=== PATIENT | male | born 2000 | race African-American/Black ===

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

== ENCOUNTER 2021-08-12 08:56 | Emergency (ER) | payer BC, SELFPAY ==
[2021-08-12] VITALS (9 sets, daily range): BP systolic 128–155; BP diastolic 74–90; PULSE 74–87; RESP 12–18; TEMP 36.4–36.9; O2SAT 99–100; BMI 31.1
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
[2021-08-12 10:00] LABS: Absolute Lymphocyte Count 1.63 X10^3/uL (0.83-4.51); Absolute Neutrophil Count 8.8 X10^3/uL (2.0-7.7); Basophil# 0.04 X10^3/uL; Basophil% 0.4 % (0-1); Eosinophil# 0.05 X10^3/uL; Eosinophils% 0.4 % (0-5); Hematocrit 45.5 % (40-54); Hemoglobin 14.8 g/dL (13.0-16.5); Lymphocyte # 1.63 X10^3/ul (0.83-4.51); Lymphocyte % 14.6 % (19-41); Mean Corp Hgb Conc 32.5 g/dL (32-36); Mean Corpuscular Hgb 29.5 pg (27.0-32.0); Mean Corpuscular Volume 90.6 fL (80-94); Mean Platelet Vol. 10.3 fl (6.2-12.0); Monocyte% 5.4 % (0-10); NRBC Flagged by Analyzer 0 % (0-5); Neutrophil # 8.83 X10^3/uL (2.7-7.7); Neutrophil % 78.8 % (47-70); Platelet Count 216 K/mm3 (150-450); RBC Distribution Width CV 12.5 % (11.6-14.6); RBC Distribution Width SD 41.4 fl (35.1-43.9); Red Blood Count 5.02 M/mm3 (4.6-6.2); White Blood Count 11.2 K/mm3 (4.4-11.0)
[2021-08-12 10:13] LABS: Anion Gap 7 (5-15); BUN 12 mg/dL (7-18); BUN/Creat Ratio 11.7 RATIO (10-20); Calcium,Total 9.6 mg/dL (8.5-10.1); Chloride 110 mmol/L (98-107); Creatinine, Serum 1.03 mg/dL (0.70-1.30); EST Glomerular Filtration Rate 97 mL/min (>60); Est Glom Filt Rate - Afr Amer 117 mL/min (>60); Estimated Creatinine Clearance 124.52 ml/min; Glucose 113 mg/dL (74-106); Potassium 3.6 mmol/L (3.5-5.1); Sodium Level 141 mmol/L (136-145)
[2021-08-12 10:26] LABS: Alcohol, Blood (Medical)-Serum < 3.0 mg/dL
[2021-08-12 10:35] LABS: Amphetamine Urine VISTA NEGATIVE (<1000 ng/mL); Barbiturate Urine VISTA NEGATIVE (< 200 ng/mL); Benzodiazepine Urine VISTA NEGATIVE (< 200 ng/mL); Cocaine Urine VISTA NEGATIVE (< 300 ng/mL); Ecstacy Urine VISTA NEGATIVE (< 500 ng/mL); Methadone Urine VISTA NEGATIVE (< 300 ng/mL); PCP Urine VISTA NEGATIVE (< 25 ng/mL); THC Urine VISTA POSITIVE (< 50 ng/mL); Vista UDS pH Range 6
[2021-08-12] MEDS: Lidocaine 1% (20 ml mdv) 20 ML Vial INFILT (10:49)
--- NOTE | 2021-08-12 11:24 | ED.RN ---
PT INFORMED OF COVID POSITIVE RESULTS. PT STARTS SHOUTING, THIS IS FUCKING BULLSHIT, HOW CAN YOU SAY THAT THEY ARE POSITIVE? PT MOM AT BEDSIDE TRYING TO TALK PATIENT, STATING THAT HE IS HERE TO GET HELP. PT GETS UP OUT OF THE BED AND STARTS PACING, REPORTS, I AM GOING TO LEAVE UP OUT OF HERE, AND AIN'T NO ONE WHO CAN STOP ME. THIS IS BULLSHIT HOW CAN YOU KEEP ME IN THIS USP, AIN'T NOTHING IN HERE BUT A SINK AND A BED. THIS IS USP AND YOU CANNOT STOP ME FROM LEAVING. PT ANGRY AND MARCHING OUT OF THE DEPARTMENT. PT PHYSICALLY PUSHING MOM OUT OF THE WAY. MOM BEGGING PT TO STAY AND GET HELP. WHILE IN THE HALLWAY PT STATES, I HAVE BEEN MESSED UP FOR A LONG TIME MOM, AND NO ONE IS TRYING TO HELP ME. ALL THEY ARE GOING TO DO IS CHARGE ME MONEY FOR BEING HERE, I AM STITCHED UP AND READY TO LEAVE.PT PINK SLIPPED. LAW ENFORCEMENT AND HRO NOTIFIED. SECURITY FOLLOWING PT.
[2021-08-12] MEDS: Ziprasidone IM 20 MG/ML VIAL IM (11:40)
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
--- NOTE | 2021-08-12 11:57 | ED.RN ---
pt escorted back to room by pd. cassi crockett. pt reports he will be cooperative, informed of pink slip. pt educated on pink slip and what that means. social economist at bedside to evaluate pt.
[2021-08-12] MEDS: Ondansetron ODT 4 MG Tablet PO (13:09)
--- NOTE | 2021-08-12 15:09 | EKG12_ITS ---
Test Reason : SUICIDAL Blood Pressure : / mmHG Vent. Rate : 055 BPM Atrial Rate : 055 BPM P-R Int : 148 ms QRS Dur : 098 ms QT Int : 424 ms P-R-T Axes : 062 080 062 degrees QTc Int : 405 ms Sinus bradycardia Otherwise normal ECG Confirmed by JULIA RIOS, HAMLET ([id number]), general expeditor TYRELL WATTERS ([id number]) on 08/15/2021 12:59:54 PM Referred By: ANDRES Confirmed By:HAMLET DUMONT MD
--- NOTE | 2021-08-12 15:09 | CM.ED ---
Call to [facility] beds available, however, not in network with patient's insurance. Call to [facility], beds available and in network with patient's insurance. Referral to be faxed. REMINGTON Gutierrez, TRACK DRESSER
--- NOTE | 2021-08-12 17:04 | CM.ED ---
Call to [facility] to check on status of referral. Per intake, behind on referrals. Will review and get back to this worker when able. Naa Monge, INFORMATION TECHNOLOGY AUDITOR, REGULATORY COMPLIANCE ENGINEER
--- NOTE | 2021-08-12 17:04 | CM.ED ---
Call to [facility], no answer, left message for intake. Call to [facility]. Intake reports beds available. Referral faxed for review. Patient pending at [facility] and [facility]. REMINGTON Gutierrez, JAVA GRAILS DEVELOPER
--- NOTE | 2021-08-12 19:17 | CM.ED ---
SOCIAL WORK Patient accepted to [facility] by Dr. Weiss to [address]. Requesting [place] Slip be faxed. Intake to call this worker back with number for report. Call to [facility], ETA 20-30 minutes. Naa Monge MSW, DATA MANAGEMENT MANAGER
--- NOTE | 2021-08-12 19:55 | CM.ED ---
Call from [facility], report to be called to [phone]. Staff and patient updated. Naa Monge, MICROFICHE DUPLICATOR, PORCELAIN WAXER
== END 2021-08-12 20:07 ==
PROVIDERS: Emergency Provider Emergency Medicine
DX: R45.851 Suicidal ideations (principal); R45.1 Restlessness and agitation; S61.211A Laceration without foreign body of left index finger without damage to nail, initial encounter; S60.512A Abrasion of left hand, initial encounter; S60.511A Abrasion of right hand, initial encounter; X78.1XXA Intentional self-harm by knife, initial encounter; Y93.9 Activity, unspecified; Y92.9 Unspecified place or not applicable; F17.210 Nicotine dependence, cigarettes, uncomplicated
CPT/HCPCS: 12001; 80048; 80307; 82077; 85025; 87426; 87635; 93005; 96372; 99285; U0005; J2405; J3486; U0003

== ENCOUNTER 2022-10-06 08:25 | Emergency (ER) | payer OTHER, SELFPAY ==
[2022-10-06 08:26] VITALS: BP 130/73; PULSE 62; RESP 14; TEMP 36.5; O2SAT 100; BMI 27.4
--- NOTE | 2022-10-06 08:50 | EX.ED.DYSGE1 ---
HPI History of Present Illness Chief Complaint: Occup Expose Detail of Chief Complaint: Inhalation of chemical dust Informant: patient Onset/Context/Timing Onset: Today Narrative Narrative: Patient presents the emergency department with complaint of inhaling a chemical dust at work. Patient states that he was moving a bag of the chemical when it got on his suit and then he inhaled it from his suit. Patient complains of some burning to his throat and a foul taste in his mouth. He denies difficulty breathing. He denies lip or tongue swelling. Inhalation occurred approximately an hour and a half ago at 7:15 AM. Patient does not want to file this under Workmen's Comp. A safety data sheet was sent with the patient and the chemical is known as Proaid and contains the chemical [id number]. Prior similar symptoms: No PFSH PFSH Medical History Asthma Chest pain Chronic headaches Chronic neck and back pain Limb weakness Shoulder pain SOB (shortness of breath) Home Medications azithromycin 250 mg tablet See Rx Instructions PO .COMPLEX #6 tabs 05/26/22 [Rx Last Taken Unknown] escitalopram oxalate 10 mg tablet ea PO 05/26/22 [History Last Taken Unknown] Allergy/AdvReac Type Severity Reaction Status Date / Time No Known Allergies Allergy Verified 10/06/22 08:27 Family History (Updated 05/26/22 @ 09:19 by Arlet Roberts, RN) Other Suicide Surgical History History of ankle surgery Social History Smoking Status: Current some day smoker tobacco type: cigarettes ROS ROS ED Review of Systems ROS Unobtainable: other Constitutional Constitutional ED: Reports lethargy; Denies chills, fever(s), sweats or weight loss Eyes Eyes: Denies blurry vision, change in vision or diplopia ENT ENT ED: Reports other Details: Burning the throat and foul taste in mouth ; Denies rhinorrhea or sore throat Cardiovascular Cardiovascular: Denies chest pain, orthopnea or racing heartbeat Respiratory/Chest Respiratory/Chest: Denies cough, dyspnea, dyspnea on exertion, orthopnea or sputum Gastrointestinal Gastrointestinal: Denies abdominal pain, diarrhea, nausea or vomiting Genitourinary Genitourinary ED: Denies dysuria, hematuria or urinary frequency Musculoskeletal Musculoskeletal: Denies arthralgias, back pain, myalgias or neck pain Integumentary Denies abscess, Abrasions or rash Neurologic Neurologic: Denies headache(s) or weakness Psychiatric Psychiatric: Denies anxiety, depression or suicidal thoughts Endocrine Endocrinology: Denies polydipsia, polyphagia or polyuria Hematologic/Lymphatic Hematologic/Lymphatic: Denies easy bleeding, easy bruising or lymphadenopathy Allergic/Immunologic Allergic/Immunologic ED: Denies mouth swelling, tongue swelling or urticaria EXAM Physical Exam Const Vital Signs: 10/06/22 08:26 Temperature 97.7 F L Temperature Source Temporal Pulse Rate 62 Respiratory Rate 14 Blood Pressure 130/73 H Blood Pressure Mean 92 Pulse Ox 100 Oxygen Delivery Method Room Air Positive well nourished and well developed General Appearance ED: well developed and NAD HEENT Reports TM's clear and moist mucous membranes normocephalic and atraumatic; Negative for trauma or tenderness Tympanic Membrane ED: Yes TM's clear Eyes PERRL and EOMs intact bilaterally General Eye ED: Negative for pale conjunctiva or scleral icterus Neck no lymphadenopathy, supple and no JVD General: Negative for tenderness Chest Wall inspection of chest normal and palpation of chest normal Chest: Negative for tenderness Resp normal respiratory effort and clear to auscultation bilaterally Effort and Inspection: Negative for respiratory distress or pain with movement Auscultation: Negative for rhonchi, wheezes or diminished lung sounds Cardio regular rate, regular rhythm, S1 normal heart sound, S2 normal heart sound and no murmurs Peripheral Pulses: pulses 2+ throughout GI normal to inspection, nondistended, normoactive bowel sounds, soft to palpation, non-tender, non-distended and no masses Back/Spine no CVA tenderness and no thoracic nor lumbar tenderness Extremity normal to inspection General Extremety ED: Negative for edema General Extremity: Negative for edema Neuro oriented x3, CN's II-XII intact bilaterally, no sensory deficits noted and gait normal Sensorium / Orientation: awake, alert, oriented to person, oriented to place and oriented to time Motor Exam: strength 5/5 throughout and strength abnormal Psych mental status grossly normal Skin no rashes or lesions noted and no wounds MDM MDM MDM Narrative Medical decision making narrative: Patient looks well on exam without any evidence of angioedema or significant oropharyngeal irritation. Lungs are clear. I discussed case with poison control and they did not find any concerning interactions or possible side effects other than in large quantities this chemical can cause symptoms similar to the THC use or can potentially cause some somnolence. At this time its been over 2 hours since inhalation and patient looks well. He was able to drink water in the department without difficulty. I feel he can be safely discharged to home as I SPECT this is more of an irritant. Patient advised to return if lip or tongue swelling or difficulty swallowing or difficulty breathing or condition should worsen anyway. Discharge Plan Triage Chief Complaint: Occup Expose ED Provider: Erica Guerrero Dx/Rx/DC Orders Clinical Impression: Exposure to chemical inhalation Instructions: ED Chemical Inhalation Prescriptions: No Action escitalopram oxalate 10 mg tablet PO Label Comments: take 1 tablet by mouth once daily azithromycin 250 mg tablet See Rx Instructions PO .COMPLEX Qty: 6 0RF Rx Instructions: take 500 mg today (day 1), then 250 mg for 4 days (days 2-5) PO Primary Care Provider: Care Physician,No Primary Referrals: Cameron Montemayor MD [Med Staff - Production Trainer] - 3-5 Days Care Physician,No Primary [Primary Care Provider] - Disposition Disposition: Home, Self Care
--- NOTE | 2022-10-06 12:15 | ED.RN ---
This rn asked patient if he wanted to file workers comp claim. He declined. This RN explained the process of workers comp and employee coverage and pt still declined.
== END 2022-10-06 10:28 | disposition home or self-care (01) ==
PROVIDERS: Emergency Provider Emergency Medicine; Visit Provider Emergency Medicine
DX: Z77.098 Contact with and (suspected) exposure to other hazardous, chiefly nonmedicinal, chemicals (principal); F17.210 Nicotine dependence, cigarettes, uncomplicated; J45.909 Unspecified asthma, uncomplicated
CPT/HCPCS: 99282